=== PATIENT | male | born 1950 | race Caucasian/White ===

== ENCOUNTER → 2016-11-06 | Outpatient (REF) | payer OTHER ==
[2016-11-06 19:36] LABS: PERCENT SATURATION 28.8 % (19.7-37.4)
== END ==
LOC: M LAB REF 17:11
PROVIDERS: ATTEND Internal Medicine Nephrology
DX: N18.3 Chronic kidney disease, stage 3 (moderate) (principal); D64.9 Anemia, unspecified

== ENCOUNTER → 2019-07-27 | Outpatient (REF) | payer MEDICARE, BC ==
[2019-07-27 12:40] LABS: CREATININE, URINE 85.3 MG/DL; MAU/CREAT RATIO 9.3 MCG/MG (0.0-30.0)
== END ==
LOC: M LAB REF 11:32
PROVIDERS: ATTEND Nurse Practitioner Family
DX: E11.22 Type 2 diabetes mellitus with diabetic chronic kidney disease (principal)

== ENCOUNTER → 2021-01-05 | Outpatient (REF) | payer MEDICARE, BC ==
[2021-01-05 17:47] LABS: CREATININE, URINE 42.9 MG/DL; MALB URINE SIEMENS 5.1 MG/L; MAU/CREAT RATIO 11.8 MCG/MG (0.0-30.0)
== END ==
LOC: M LAB REF 17:00
PROVIDERS: ATTEND Nurse Practitioner Family
DX: E11.22 Type 2 diabetes mellitus with diabetic chronic kidney disease (principal)

== ENCOUNTER → 2022-08-02 | Outpatient (REF) | payer MEDICARE, BC ==
[2022-08-02 18:11] LABS: CREATININE, URINE 24.7 MG/DL; MALB URINE SIEMENS < 3.0 MG/DL; MAU/CREAT RATIO 12.1 MCG/MG (0.0-30.0)
== END ==
LOC: M LAB REF 17:01
PROVIDERS: ATTEND Internal Medicine Nephrology
DX: E11.22 Type 2 diabetes mellitus with diabetic chronic kidney disease (principal)

== ENCOUNTER → 2023-06-20 | Day surgery (SDC) | payer BC, MEDICARE ==
[~2023-06-20] VITALS: Ht 170.2 cm; Wt 117.0 kg
[~2023-06-20] MED LIST: ALLO300T2 PO; ASPI81CH33 PO; ATOR80TA59 PO; BRIM5DRO4 OD; BRIN15DR OU; BSS IRRIG/VANCO(10MG)/TOBRA(5MG)/EPINEPH(1:1000-0.5CC)500ML BAG-ORONLY IR ONE; CEFUROXIME 1MG/0.1ML INTRACAMERAL INJ As Ordered ONE; CYCLOPENTOLATE 1% OPHTH SOLN 2ML BTL OS SCH; EZET10TA21 PO; FARX1TAB5 PO; FURO40TA2 PO; HUMA100I5 SQ; LANTINJ4 SQ; LIDOCAINE 1% SDV 5ML VIAL As Ordered ONE; LIDOCAINE 3.5 % 1ML OPHTH TOPICAL GEL OU ONE; LOSA100T46 PO; METO50TA7 PO; MIDAZOLAM INJ 2MG/2ML VIAL As Ordered ONE; MINO10TA PO; OFLOXACIN 0.3 % (OCUFLOX) OPTH SOL 5ML OS ONE; PHENYLEPHRINE 10% OPHTH SOL 5ML OS PRN; PHENYLEPHRINE 2.5% OPHTH SOL 2ML OS SCH; TRAV2.5D OU; TROPICAMIDE 1% OPHTH SOLN 15ML OS SCH; TRUL0.5I SQ; fentaNYL 100 MCG/2 ML INJECTION As Ordered ONE
[2023-06-20 14:45] VITALS: BP 145/68; TEMP 97; O2SAT 96
== END | disposition home or self-care (01) ==
LOC: M SDC 12:40
PROVIDERS: ATTEND Ophthalmology
DX: E11.36 Type 2 diabetes mellitus with diabetic cataract (principal); H25.11 Age-related nuclear cataract, right eye; I10 Essential (primary) hypertension; E78.00 Pure hypercholesterolemia, unspecified; G47.30 Sleep apnea, unspecified; Z79.899 Other long term (current) drug therapy; Z79.4 Long term (current) use of insulin; Z87.891 Personal history of nicotine dependence
CPT/HCPCS: 66984; J0697; J2250; J3010; V2632